=== PATIENT | male | born 1955 | race Caucasian/White ===

== ENCOUNTER 2023-08-30 08:40 | Day surgery (SDC) | payer BC ==
[~2023-08-30 08:40] MED LIST: Acetaminophen 325 MG Tab PO SCH; EPINEPHrine 1 MG/ML SDV ONE; Lactated Ringers 1,000 ML IV SCH; Lidocaine 1% 5 ML VIAL ONE; Midazolam 1 MG/ML 2 ML SDV ONE; Neostigmine Methylsulfate 10 MG/10 ML MDV ONE; Ondansetron 4 MG/2 ML SDV ONE; Pregabalin 25 MG Cap PO SCH; Propofol 200 MG/20 ML SDV ONE; Rocuronium 50 MG/5 ML Vial ONE; Ropivacaine 0.5% 5 MG/ML 30 ML SDV ONE; Sodium Chloride 0.9% 10 ML Syringe FLUSH PRN; Sodium Chloride 0.9% 10 ML Syringe FLUSH SCH; fentaNYL 250 MCG/5 ML SDV ONE; oxyCODONE ER 10 MG TAB.ER PO SCH
[2023-08-30] MEDS ORDERED: Ketorolac 15 MG/ML SDV ONE (08:41)
[2023-08-30] MEDS ORDERED: Dexmedetomidine 200 MCG/2 ML SDV ONE (09:22)
[2023-08-30] MEDS ORDERED: Dexamethasone 4 MG/ML 5 ML MDV ONE (09:22)
[2023-08-30] MEDS ORDERED: Tranexamic Acid 1,000 MG/10 ML Vial ONE (09:26)
[2023-08-30] MEDS ORDERED: Vancomycin 1 GM SDV ONE (09:26)
[2023-08-30] MEDS ORDERED: fentaNYL 100 MCG/2 ML SDV IVPUSH PRN ×2 (09:40→14:09)
[2023-08-30] MEDS ORDERED: Ondansetron 4 MG/2 ML SDV IVPUSH PRN ×2 (09:40→14:09)
[2023-08-30] MEDS ORDERED: HYDROmorphone 0.5 MG/0.5 ML Syringe IVPUSH PRN ×2 (09:40→14:09)
[2023-08-30] MEDS ORDERED: Bupivacaine 0.25% 10 ML SDV ONE (10:22)
[2023-08-30] MEDS ORDERED: Triamcinolone Acetonide 40 MG/ML 1 ML SDV ONE (10:22)
[2023-08-30] MEDS ORDERED: Lidocaine 1% 2 ML ONE (10:55)
[2023-08-30] MEDS ORDERED: fentaNYL 100 MCG/2 ML SDV ONE (10:55)
[2023-08-30] MEDS ORDERED: Propofol 200 MG/20 ML SDV ONE (10:55)
[2023-08-30] MEDS ORDERED: Midazolam 1 MG/ML 2 ML SDV ONE (10:55)
[2023-08-30] MEDS ORDERED: Rocuronium 50 MG/5 ML Vial ONE (10:55)
[2023-08-30] MEDS ORDERED: ceFAZolin 2 GM Vial ONE (11:19)
[2023-08-30] MEDS ORDERED: ePHEDrine 50 MG/ML SDV ONE (11:30)
[2023-08-30] MEDS ORDERED: Phenylephrine 1% 10 MG/ML SDV ONE (11:45)
[2023-08-30] MEDS ORDERED: Sugammadex Sodium 200 MG/2 ML VIAL ONE (12:11)
== END 2023-08-30 15:47 | disposition home or self-care (01) ==
LOC: JD.SDS 08:40
PROVIDERS: ATTEND Orthopaedic Surgery
DX: M19.012 Primary osteoarthritis, left shoulder (principal); M19.011 Primary osteoarthritis, right shoulder; E78.00 Pure hypercholesterolemia, unspecified; I10 Essential (primary) hypertension; E66.9 Obesity, unspecified; G47.33 Obstructive sleep apnea (adult) (pediatric); Z68.41 Body mass index [BMI] 40.0-44.9, adult; Z79.899 Other long term (current) drug therapy; Z79.1 Long term (current) use of non-steroidal anti-inflammatories (NSAID); Z87.891 Personal history of nicotine dependence
CPT/HCPCS: 20610; 23472; 64415; 76000; 97110; 97161; A9270; C1713; C1769; C1776; J0171; J0690; J1100; J1885; J2250; J2371; J2405; J2704; J2710; J2795; J3010; J3301; J3370; J3490; J7030; J7120; 01638

== ENCOUNTER 2025-01-14 08:15 | Day surgery (SDC) | payer MEDICARE, OTHER ==
[2025-01-14] MEDS ORDERED: Triamcinolone Acetonide 40 MG/ML 1 ML SDV ONE ×2 (08:40→08:59)
[2025-01-14] MEDS ORDERED: Tranexamic Acid 1,000 MG/10 ML Vial ONE (08:40)
[2025-01-14] MEDS ORDERED: VANCOmycin 1 GM SDV ONE (08:40)
[2025-01-14] MEDS ORDERED: Bupivacaine 0.25% 10 ML SDV ONE ×2 (08:40→08:59)
[2025-01-14] MEDS: Lactated Ringers 1,000 ML IV SCH (08:50)
[2025-01-14] MEDS ORDERED: Sodium Chloride 0.9% 10 ML Syringe FLUSH PRN (09:12)
[2025-01-14] MEDS ORDERED: Sodium Chloride 0.9% 10 ML Syringe FLUSH SCH (09:15)
[2025-01-14] MEDS: Pregabalin 25 MG Cap PO ONE (09:37)
[2025-01-14] MEDS: Acetaminophen 325 MG Tab PO ONE (09:37)
[2025-01-14] MEDS: oxyCODONE ER 10 MG TAB.ER PO ONE (09:37)
[2025-01-14] MEDS ORDERED: Propofol 200 MG/20 ML SDV ONE ×4 (09:46→11:29)
[2025-01-14] MEDS ORDERED: Ondansetron 4 MG/2 ML SDV ONE (09:49)
[2025-01-14] MEDS ORDERED: Ropivacaine 0.5% 5 MG/ML 30 ML SDV ONE ×2 (10:16)
[2025-01-14] MEDS ORDERED: ceFAZolin 2 GM Vial ONE (10:46)
[2025-01-14] MEDS ORDERED: dexmedeTOMIDine HCl 200 MCG/2 ML SDV ONE (10:56)
[2025-01-14] MEDS ORDERED: Lactated Ringers 1,000 ML IV ONE (11:00)
[2025-01-14] MEDS ORDERED: Ketamine 200 MG/20 ML MDV ONE (11:09)
[2025-01-14] MEDS ORDERED: Phenylephrine 1% 10 MG/ML SDV ONE (11:21)
[2025-01-14] MEDS: Morphine 8 MG, EPINEPHrine 0.3 MG, Cefuroxime 750 MG, Ketorolac 30 MG, Sodium Chloride ... PRN (11:52)
[2025-01-14] MEDS: Tranexamic Acid 1,000 MG/10 ML Vial ONE (11:57)
[2025-01-14] MEDS: VANCOmycin 1 GM SDV ONE (11:57)
[2025-01-14] MEDS ORDERED: Ondansetron 4 MG/2 ML SDV IVPUSH PRN (12:33)
[2025-01-14] MEDS ORDERED: HYDROmorphone 0.5 MG/0.5 ML Syringe IVPUSH PRN (12:33)
[2025-01-14] MEDS ORDERED: fentaNYL 100 MCG/2 ML SDV IVPUSH PRN (12:33)
[2025-01-14] MEDS: oxyCODONE 5 MG Tab PO ONE (16:10)
== END 2025-01-14 16:55 | disposition home or self-care (01) ==
LOC: JD.SDS 08:15
PROVIDERS: ATTEND Orthopaedic Surgery
DX: M17.12 Unilateral primary osteoarthritis, left knee (principal); M19.012 Primary osteoarthritis, left shoulder; Z79.899 Other long term (current) drug therapy
CPT/HCPCS: 0055T; 20610; 27447; 64447; 73560; 97116; 97161; A9270; C1713; C1776; J0171; J0665; J0690; J0697; J1885; J2272; J2371; J2405; J2704; J2795; J3301; J3490; J7120